=== PATIENT | male | born 1945 | race Native Hawaiian/Other Pacific Islander ===

== ENCOUNTER 2019-12-07 13:36 | Emergency (ER) | payer OTHER, BC ==
[~2019-12-07] VITALS: Ht 177.8 cm; Wt 99.8 kg
[2019-12-07 14:29] LABS: PLATELET COUNT 218 K/uL (142-355)
[2019-12-07 16:06] VITALS: BP 143/77; TEMP 97.9
== END 2019-12-07 16:06 | disposition home or self-care (01) ==
LOC: ED 13:36
PROVIDERS: Emergency Medicine
DX: M19.071 Primary osteoarthritis, right ankle and foot (principal); R60.0 Localized edema
CPT/HCPCS: 80053; 83880; 85027; 85379; 93005; 99283